=== PATIENT | male | born 1945 | race Caucasian/White ===

== ENCOUNTER 2019-08-10 15:58 | Emergency (ER) | payer MEDICARE, OTHER ==
[~2019-08-10] VITALS: Ht 177.8 cm; Wt 94.2 kg
[2019-08-10 16:10] VITALS: BP 185/99
--- NOTE | 2019-08-10 16:21 | PHYS DOC ---
Past History Past Medical History: Diabetes, Heart Disease, Hypertension Smoking: Non-smoker General Adult EDM: Chief Complaint: HEAD INJURY/TRAUMA HPI: HPI: Patient is a 74-year-old male who presents to the emergency department for evaluation. He was working on his boat on Sunday evening, when his left hand which was supporting his body weight slipped, and he lurched forward and struck an open pradhan with his head. He sustained a linear abrasion/skin tear on his scalp. He states that oozed overnight Sunday night and Sunday night, despite his using antibiotic ointment and bandages at home so he presented to the emergency department for evaluation. He denies any signs or symptoms of a serious head injury, he has not had any nausea, vomiting, vision changes, or trouble concentrating. He is uncertain of his last tetanus. There are no alleviating or exacerbating factors to his symptoms. Review of Systems: Review of Systems: Constitutional: Denies fever or chills Eyes: Denies change in visual acuity HENT: Denies nasal congestion or sore throat Respiratory: Denies cough or shortness of breath Cardiovascular: Denies chest pain or edema GI: Denies abdominal pain, nausea, vomiting, bloody stools or diarrhea : Denies dysuria Integument: Denies rash Neurologic: Denies headache, focal weakness or sensory changes Endocrine: Denies polyuria or polydipsia Heart Score: Risk Factors: Risk Factors: DM, Current or recent (<one month) smoker, HTN, HLP, family hist ory of CAD, obesity. Risk Scores: Score 0 - 3: 2.5% MACE over next 6 weeks - Discharge Home Score 4 - 6: 20.3% MACE over next 6 weeks - Admit for Clinical Observation Score 7 - 10: 72.7% MACE over next 6 weeks - Early Invasive Strategies Physical Exam: PE: PHYSICAL EXAM: CONSTITUTIONAL: Well developed, well nourished HEAD: normocephalic, there is a linear abrasion/skin tear on the superior scalp, just to the right of midline, the remainder the cranium is atraumatic EENT: PERRL, EOMI. Conjunctivae normal color, sclerae non-icteric; moist mucous membranes. NECK: Supple, non-tender; no meningismus. LUNGS: Lungs CTA, breathing even and unlabored. Normal air movement. HEART: Regular rate and rhythm, no murmur CHEST: No deformity; non-tender ABDOMEN: The abdomen is soft, and non-tender, no masses or bruits. EXTREM: Normal ROM; no deformity, no calf tenderness. Normal pulses palpable in all extremities. There is no pedal edema. SKIN: No rash; no diaphoresis NEURO: Alert; normal speech and cognition; CN's grossly intact; strength grossly intact without focal deficit. EKG: EKG: [] Radiology/Procedures: Radiology/Procedures: [] Course & Med Decision Making: Course & Med Decision Making Discussed wound care with patient, need for PCP follow-up and return precautions. Dragon Disclaimer: Dragon Disclaimer: This electronic medical record was generated, in whole or in part, using a voice recognition dictation system. Departure Departure: Impression: Primary Impression: Scalp abrasion Disposition: 01 HOME/RESIDENCE PRIOR TO ADM Condition: STABLE Referrals: TERESA LEYVA MD (PCP) Patient Instructions: Abrasions, Skin Tear Care Justification of Admission: Justification of Admission: Justification of Admission Dx: N/A KAIDEN EDWARDS MD Aug 10, 2019 16:21
[2019-08-10] MEDS ORDERED: BACITRACIN ZINC TOPICAL OINT PACKET. TP ONE (16:45)
[2019-08-10] MEDS ORDERED: DIPH,PERTUSS(ACELL),TET VAC/PF 0.5 ML SYRINGE. VAX IM ONE (16:45)
== END 2019-08-10 16:40 | disposition home or self-care (01) ==
LOC: ER 15:58
DX: S00.01XA Abrasion of scalp, initial encounter (principal); E11.9 Type 2 diabetes mellitus without complications; I11.9 Hypertensive heart disease without heart failure; W01.198A Fall on same level from slipping, tripping and stumbling with subsequent striking against other object, initial encounter; Y93.89 Activity, other specified; Y92.89 Other specified places as the place of occurrence of the external cause; Y99.8 Other external cause status
CPT/HCPCS: 90471; 90715; 99283

== ENCOUNTER 2020-03-17 07:21 | Emergency (ER) | payer MEDICARE, OTHER ==
[~2020-03-17] VITALS: Ht 177.8 cm; Wt 94.2 kg
[2020-03-17] MEDS ORDERED: ROCURONIUM 50 MG/5 ML VIAL. ONE (07:30)
[2020-03-17] MEDS ORDERED: PROPOFOL 100 ML IV ONE (07:31)
--- NOTE | 2020-03-17 07:39 | PHYS DOC ---
Past History Past Medical History: Diabetes, Heart Disease, Hypertension Additional Past Medical Histor: GOUT Past Surgical History: Cervical Fusion, Other Additional Past Surgical Histo: CARDIAC ABLATION Smoking: Non-smoker Alcohol Use: Rarely General Adult HPI: HPI: History obtained from EMS and . Patient is a 75-year-old male with past medical recent report anemia, hypertension, hyperlipidemia, gout, A. fib, diabetes who presents with chief complaint of shortness of breath. EMS were called to the house for progressive shortness of breath over the night. states she has had a cough and subjective fevers over the past 24 hours. She notes that he has been complaining of a cough and sore throat over that time period as well. EMS states on arrival patient was satting in the low 60s on room air. He does use a CPAP device at night. They placed him on CPAP and did improve his oxygenation to the mid 80s. They state in route he did become unresponsive. They did place a nasal trumpet and began bagging him. Upon arrival patient is unresponsive. No further history can be obtained. Review of Systems: Review of Systems: Review of symptoms unobtainable secondary to patient's altered mental status. Current Medications: Current Meds: Current Medications Medications (Trade) Dose Ordered Sig/Narendra Start Time Stop Time Status Last Admin Dose Admin Fentanyl Citrate (Fentanyl 2ml Vial) 100 mcg STK-MED ONCE 03/17/20 07:31 03/17/20 07:32 DC Propofol 100 ml @ As Directed STK-MED ONCE 03/17/20 07:31 03/17/20 07:32 DC Allergies: Allergies: Allergies Coded Allergies Type Severity Reaction Last Updated Verified No Known Drug Allergies 08/10/19 No Physical Exam: PE: Constitutional: Unresponsive HENT: Normocephalic, atraumatic, bilateral external ears normal, oropharynx moist, no oral exudates, nasal trumpet in place. [] Eyes: PERRLA, EOMI, conjunctiva normal, no discharge. [] Neck: supple, no stridor. [] Cardiovascular: Tachycardic, regular, no murmurs noted. Lungs & Thorax: Rhonchorous breath sounds noted bilaterally. Nasal trumpet in place. Arrives with bagging in process. Abdomen: no masses, no pulsatile masses. [] Skin: Warm, dry, no erythema, no rash. [] Extremities: No tenderness, no cyanosis, no clubbing, ROM intact, no edema. [] Neurologic: GCS [address] Current Patient Data: Labs: Laboratory Tests Test 03/17/20 07:25 03/17/20 08:00 03/17/20 08:15 White Blood Count 14.5 x10^3/uL Red Blood Count 4.43 x10^6/uL Hemoglobin 13.0 g/dL Hematocrit 40.7 % Mean Corpuscular Volume 92 fL Mean Corpuscular Hemoglobin 29 pg Mean Corpuscular Hemoglobin Concent 32 g/dL Red Cell Distribution Width 15.7 % Platelet Count 180 x10^3/uL Neutrophils (%) (Auto) 74 % Lymphocytes (%) (Auto) 17 % Monocytes (%) (Auto) 9 % Eosinophils (%) (Auto) 1 % Basophils (%) (Auto) 0 % Neutrophils # (Auto) 10.7 x10^3uL Lymphocytes # (Auto) 2.4 x10^3/uL Monocytes # (Auto) 1.2 x10^3/uL Eosinophils # (Auto) 0.1 x10^3/uL Basophils # (Auto) 0.0 x10^3/uL Lactic Acid Level 1.6 mmol/L Troponin I Quantitative 0.024 ng/mL Blood Gas pH 7.20 Blood Gas PCO2 75 mmHg Blood Gas PO2 81 mmHg Blood Gas HCO3 29 mmol/L Arterial Bld O2 Saturation (Calc) 91 % FiO2 100 % Sodium Level 140 mmol/L Potassium Level 4.9 mmol/L Chloride Level 104 mmol/L Carbon Dioxide Level 28 mmol/L Anion Gap 8 Blood Urea Nitrogen 25 mg/dL Creatinine 1.1 mg/dL Estimated GFR (Cockcroft-Gault) 65.6 BUN/Creatinine Ratio 23 Glucose Level 204 mg/dL Calcium Level 8.2 mg/dL Magnesium Level 1.7 mg/dL Total Bilirubin 0.8 mg/dL Aspartate Amino Transf (AST/SGOT) 21 U/L Alanine Aminotransferase (ALT/SGPT) 33 U/L Alkaline Phosphatase 76 U/L YK-Mth-H-Type Natriuretic Peptide 1571 pg/mL Total Protein 7.3 g/dL Albumin 3.7 g/dL Albumin/Globulin Ratio 1.0 Lipase 81 U/L Current Medications Medications (Trade) Dose Ordered Sig/Narendra Route PRN Reason Start Time Stop Time Status Last Admin Dose Admin Fentanyl Citrate (Fentanyl 2ml Vial) 100 mcg STK-MED ONCE .ROUTE 03/17/20 07:31 03/17/20 07:32 DC Propofol 100 ml @ As Directed STK-MED ONCE IV 03/17/20 07:31 03/17/20 07:32 DC Piperacillin Sod/ Tazobactam Sod 3.375 gm/Sodium Chloride 50 ml @ 100 mls/hr 1X ONCE IV 03/17/20 07:45 03/17/20 08:14 DC Vancomycin HCl 2.5 gm/Sodium Chloride 500 ml @ 250 mls/hr 1X ONCE IV 03/17/20 07:45 03/17/20 07:45 DC Fentanyl Citrate (Fentanyl 2ml Vial) 50 mcg PRN Q5MIN PRN IV PAIN 03/17/20 07:45 Fentanyl Citrate 30 ml @ 2.5 mls/hr CONT PRN IV PAIN 03/17/20 07:45 Propofol 100 ml @ 0 mls/hr CONT PRN IV PER PROTOCOL 03/17/20 07:45 Rocuronium [place] (Zemuron) 100 mg 1X ONCE IV 03/17/20 07:45 03/17/20 07:46 DC Etomidate (Amidate) 20 mg 1X ONCE INJ 03/17/20 07:45 03/17/20 07:46 DC Albuterol Sulfate (Ventolin) 2.5 mg STK-MED ONCE .ROUTE 03/17/20 07:43 03/17/20 07:43 DC Vancomycin HCl 2 gm/Sodium Chloride 500 ml @ 250 mls/hr 1X ONCE IV 03/17/20 07:45 03/17/20 09:44 Iohexol (Omnipaque 350 Mg/ml) 100 ml 1X ONCE IV 03/17/20 08:00 03/17/20 08:01 DC 03/17/20 08:00 Albuterol/ Ipratropium (Duoneb) 9 ml 1X ONCE NEB 03/17/20 07:45 03/17/20 08:00 DC Dexamethasone Sodium Phosphate (Decadron) 10 mg 1X ONCE IV 03/17/20 07:45 03/17/20 08:00 DC Sodium Chloride 1,000 ml @ 1,000 mls/hr 1X ONCE IV 03/17/20 08:15 03/17/20 09:14 DC Sodium Chloride 50 ml @ As Directed STK-MED ONCE .ROUTE 03/17/20 08:59 03/17/20 08:59 DC Piperacillin Sod/ Tazobactam Sod (Zosyn) 3.375 gm STK-MED ONCE IV 03/17/20 08:59 03/17/20 08:59 DC Magnesium Sulfate 50 ml @ 25 mls/hr 1X ONCE IV 03/17/20 09:15 03/17/20 11:14 Vital Signs: Vital Signs Date Time Temp Pulse Resp B/P (MAP) Pulse Ox O2 Delivery O2 Flow Rate FiO2 03/17/20 07:45 90 AVAPS V60 03/17/20 07:25 104 20 147/100 (116) 87 Bag Valve Mask 10.0 EKG: EKG: [] EKG consistent with sinus tachycardia. Ventricular rate of 104 bpm. [place] normal. Intervals normal. No acute ischemic changes noted. Radiology/Procedures: Radiology/Procedures: [address] [address] IMAGING REPORT Signed PATIENT: DEISI JOHNSON LACCOUNT: [id number] : 12/13/1953 LOCATION: ER AGE: 66 SEX: M EXAM STATUS: REG ER ORD. PHYSICIAN: MIGUEL GARSIA DO REASON: fall PROCEDURE: CT HEAD AND CERVICAL SPINE WO CT brain without contrast, CT C-spine without contrast. HISTORY: Fall CT brain CT scan of brain was done without contrast. Comparison is made with a study from December 16. There is diffuse atrophy. There is no intracranial hemorrhage or subdural hematoma. There is no mass effect or shift of the midline. Ventricles are within normal limits in size for the degree of atrophy. An acute CVA is not identified. Sinuses are clear. A skull fracture is not identified. IMPRESSION: 1. Atrophy. 2. No intracranial hemorrhage or acute finding. End impression CT cervical spine Axial CT images were obtained through the cervical spine. Sagittal and coronal reconstructed images were reviewed. There is degenerative change in the cervical spine. There are emphysematous changes in the upper lobes of the lungs. There is mild to moderate carotid artery calcification at the carotid bifurcations on each side. There is degenerative disc disease at all levels in the cervical spine except for C2-3. There is foraminal stenosis from uncovertebral spurring and facet arthritis at several levels bilaterally. An acute C-spine fracture is not identified. IMPRESSION: 1. Extensive degenerative changes in the cervical spine. 2. No acute C-spine fracture. PQRS Compliance Statement: One or more of the following individualized dose reduction techniques were utilized for this examination: 1. Automated exposure control 2. Adjustment of the mA and/or kV according to patient size 3. Use of iterative reconstruction technique Electronically signed by: Sarath Mcdonald MD (03/17/2020 10:02 AM) [id number] DICTATED AND SIGNED BY: SARATH MCDONALD MD DATE: 03/17/20956 CC: RADHA BLUNT DO; MIGUEL GARSIA DO ~MTH0 [address] [place] [address] IMAGING REPORT Signed PATIENT: SHAN STORM LACCOUNT: [id number] : 1945 LOCATION: ER AGE: 75 SEX: M EXAM STATUS: REG ER ORD. PHYSICIAN: MIGUEL GARSIA DO REASON: AMS PROCEDURE: CT HEAD WO CONTRAST CT brain without contrast. HISTORY: Altered mental status, intubated CT scan of the brain was done without contrast. Sinuses are clear. There is no intracranial hemorrhage or subdural hematoma. There is no mass effect or shift of the midline. Ventricles are normal in size. An acute CVA is not identified. IMPRESSION: 1. No intracranial hemorrhage or acute finding noted. PQRS Compliance Statement: One or more of the following individualized dose reduction techniques were utilized for this examination: 1. Automated exposure control 2. Adjustment of the mA and/or kV according to patient size 3. Use of iterative reconstruction technique Electronically signed by: Sarath Mcdonald MD (03/17/2020 9:33 AM) [id number] DICTATED AND SIGNED BY: SARATH MCDONALD MD DATE: 03/17/20930 CC: TERESA LEYVA MD; MIGUEL GARSIA DO ~MTH0 0 Endotracheal Intubation Procedure Note [place] Protocol: 1. Pre-procedure verification: - Correct patient, correct site, correct procedure (correct patient verified against two identifiers: name and date of ) - H&P or H&P update complete and in medical record - Review of: Radiology images, scans, labs, pathology, biopsy reports with appropriate identifiers (if applicable) - Any required blood products, implants, devices, and/or special equipment for the procedure (if applicable) 2. Site Markings - when appropriate: N/A 3. Time Out: Time out performed (Includes validating the following: Correct patient, correct side/site marked and procedure to performed, correct position) Procedure Details: Procedure: Endotracheal intubation Indication: Acute Respiratory Failure secondary to hypoxia and altered mental status Consent: Obtained verbally from Procedure: The patient was placed in the supine position and pre-oxygenated with 100% oxygen via BVM. Sedation was given with etomidate. Using a glide scope for blade, the cords were visualized; an 7.5 cuffed tube was able to be passed through the cords with direct visualization. Condensation was seen in the tube; bilateral breath-sounds were present, with none auscultated over the abdomen; good color change was present on EtCO2 detector. A CXR is ordered to cofirm placement. The ETT was secured at 22 cm at the lips. Mechanical ventilation is initiated at A/C, Vt 450ml, 100% FiO2, rate 16, PEEP 5. The patient tolerated procedure without immediate complication. Miguel Garsia, [] Impressions: The patient had a high probability of sudden, clinically significant deterioration, which required the highest level of physician preparedness to intervene urgently. I managed life or organ supporting interventions that required frequent re-assessment throughout their stay in the emergency department. The total critical care time spent managing their case, separate from other billable procedures, was 42 minutes. Heart Score: Risk Factors: Risk Factors: DM, Current or recent (<one month) smoker, HTN, HLP, family history of CAD, obesity. Risk Scores: Score 0 - 3: 2.5% MACE over next 6 weeks - Discharge Home Score 4 - 6: 20.3% MACE over next 6 weeks - Admit for Clinical Observation Score 7 - 10: 72.7% MACE over next 6 weeks - Early Invasive Strategies Course & Med Decision Making: Course & Med Decision Making Pertinent Labs and Imaging studies reviewed. (See chart for details) [] Patient is a 75 old male who arrives from home with chief complaint of shortness of breath. Upon arrival EMS states that his oxygenation was low 60s on room air. He was placed on CPAP device. In route patient became more unresponsive. Upon arrival patient was being bagged with an approximate oxygenation of 88%. He was unresponsive with a GCS of 3. Emergent intubation performed immediately. See procedure note for further details. Patient's initial oxygenation was approximate 90% on 100% FiO2. His PEEP was escalated to 12. His oxygenation did improve to proximally 94%. Imaging reveals concern for multifocal pneumonia. Unclear if this is bacterial or Covid related. Vancomycin and Zosyn were administered. Blood and urine cultures pending. IV fluids were administered. Lactate 1.6. Mild leukocytosis of 15,000. Mild elevation of troponin of 0.024. Likely type II NSTEMI in the setting of sepsis. Heparinization be deferred as I have low suspicion for ACS. EKG essentially sinus tachycardia with out acute ischemic changes. Patient was comfortably sedated on the ventilator. was updated on plan of care. Per the 's request patient will be transferred to [facility]. Did discuss the case with Dr. Christianson at [facility]. Patient be transferred to [facility] for further care. Has remained hemodynamically stable in our emergency department. Dragon Disclaimer: DragKonoz Disclaimer: This electronic medical record was generated, in whole or in part, using a voice recognition dictation system. Departure Departure: Impression: Primary Impression: Respiratory failure with hypoxia and hypercapnia Qualified Codes: J96.01 - Acute respiratory failure with hypoxia; J96.02 - Acute respiratory failure with hypercapnia Additional Impressions: Sepsis Qualified Codes: A41.9 - Sepsis, unspecified organism Multifocal pneumonia Hyperglycemia NSTEMI (non-ST elevated myocardial infarction) Disposition: 02 DC/TRF OTHER SHORT TERM HOS Condition: STABLE Referrals: TERESA LEYVA MD (PCP) Attending Signature Attending Signature I was personally available for consult in the emergency department. I have reviewed the chart and agree with the documentation as recorded by the DEREK including the assessment, treatment plan and disposition. MIGUEL GARSIA DO Mar 17, 2020 07:39
[2020-03-17] MEDS ORDERED: ALBUTEROL SULFATE 2.5 MG/3 ML NEBU. ONE (07:43)
[2020-03-17] MEDS ORDERED: ETOMIDATE 40 MG/20 ML VIAL. INJ ONE (07:45)
[2020-03-17] MEDS ORDERED: DEXAMETHASONE SOD PHOS 10 MG/ML VIAL. IV ONE (07:45)
[2020-03-17] MEDS ORDERED: IPRATRPIUM/ALBUTEROL 0.5/2.5MG 3 ML NEBU. NEB ONE (07:45)
[2020-03-17] MEDS ORDERED: ROCURONIUM 50 MG/5 ML VIAL. IV ONE (07:45)
[2020-03-17] MEDS ORDERED: VANCOMYCIN 2.5 GM in IV NORMAL SALINE 500ML 500 ML IV ONE (07:45)
[2020-03-17] MEDS ORDERED: PROPOFOL 100 ML IV PRN (07:45)
[2020-03-17] MEDS ORDERED: PIPERACILLIN/TAZOBACTAM 3.375 GM in IV NORMAL SALINE 50ML 50 ML IV ONE (07:45)
[2020-03-17] MEDS ORDERED: VANCOMYCIN 2 GM in IV NORMAL SALINE 500ML 500 ML IV ONE (07:45)
--- NOTE | 2020-03-17 07:58 | RAD ---
AP chest. HISTORY: Respiratory failure, intubated AP view of the chest shows the endotracheal tube in good position just above the aortic arch. Heart i s normal in size. There is mild gastric distention. There are hazy diffuse bilateral infiltrates sugg esting pneumonia. There is no effusion. IMPRESSION: 1. Endotracheal tube in good position. 2. Bilateral diffuse infiltrates. PQRS Compliance Statement: One or more of the following individualized dose reduction techniques were utilized for this examinat ion: 1. Automated exposure control 2. Adjustment of the mA and/or kV according to patient size 3. Use of iterative reconstruction technique Electronically signed by: Sarath Mcdonald MD (03/17/2020 7:55 AM) [id number]
[2020-03-17 07:59] LABS: BASO % 0 % (0-3); EOS # 0.1 x10^3/uL (0.0-0.7); EOS % 1 % (0-3); HEMATOCRIT 40.7 % (39.0-53.0); LYMPH # 2.4 x10^3/uL (1.0-4.8); LYMPH % 17 % (24-48); MEAN CORPUSCULAR HEMOGLOBIN 29 pg (25-35); MEAN CORPUSCULAR HGB CONC 32 g/dL (31-37); MEAN CORPUSCULAR VOLUME 92 fL (79-100); MONO # 1.2 x10^3/uL (0.0-1.1); MONO % 9 % (0-9); NEUT # 10.7 x10^3uL (1.8-7.7); NEUT % 74 % (31-73); PLATELET COUNT 180 x10^3/uL (140-400); RED BLOOD COUNT 4.43 x10^6/uL (4.30-5.70); RED CELL DISTRIBUTION WIDTH 15.7 % (11.5-14.5); WHITE BLOOD COUNT 14.5 x10^3/uL (4.0-11.0)
[2020-03-17] MEDS ORDERED: IOHEXOL 350 MG/ML 100 ML VIAL. IV ONE (08:00)
[2020-03-17] MEDS ORDERED: IV NORMAL SALINE 1,000ML 1,000 ML IV ONE (08:15)
--- NOTE | 2020-03-17 08:15 | RAD ---
EXAM: 1. CHEST ONE VIEW. 2. ABDOMEN ONE VIEW. HISTORY: Intubated, respiratory failure, line placement. COMPARISON: None. FINDINGS: An endotracheal tube has its tip 6.5 cm above the smitha. A nasogastric tube has its tip in the stomach. Bilateral airspace infiltrates are consistent with moderate multifocal ammonia. There is no pneumotho rax or clear pleural effusion. The heart is moderately enlarged. There are atherosclerotic calcificat ions of the aorta. There is moderate gaseous distention of the stomach. There is at least mild small bowel distention in the upper abdomen. IMPRESSION: 1. Moderate multifocal pneumonia. 2. Gaseous distention of the stomach and small bowel in the upper abdomen. Electronically signed by: Miguelina Perry MD (03/17/2020 8:13 AM) [id number]
[2020-03-17 08:16] LABS: BGAS PH 7.2 (7.35-7.46)
[2020-03-17 08:41] LABS: CALCIUM 8.2 mg/dL (8.5-10.1); CREATININE 1.1 mg/dL (0.7-1.3); GFR 65.6; POTASSIUM 4.9 mmol/L (3.5-5.1)
[2020-03-17 08:54] LABS: ALBUMIN 3.7 g/dL (3.4-5.0); MAGNESIUM 1.7 mg/dL (1.8-2.4); TOTAL BILIRUBIN 0.8 mg/dL (0.2-1.0); TOTAL PROTEIN 7.3 g/dL (6.4-8.2)
[2020-03-17] MEDS ORDERED: IV NORMAL SALINE 50ML 50 ML ONE (08:59)
[2020-03-17] MEDS ORDERED: PIPERACILLIN/TAZOBACTAM 3.375 GM VIAL IV ONE (08:59)
[2020-03-17] MEDS ORDERED: MAGNESIUM SULFATE 2GM 50 ML IV ONE (09:15)
--- NOTE | 2020-03-17 09:35 | RAD ---
CT brain without contrast. HISTORY: Altered mental status, intubated CT scan of the brain was done without contrast. Sinuses are clear. There is no intracranial hemorrhag e or subdural hematoma. There is no mass effect or shift of the midline. Ventricles are normal in siz e. An acute CVA is not identified. IMPRESSION: 1. No intracranial hemorrhage or acute finding noted. PQRS Compliance Statement: One or more of the following individualized dose reduction techniques were utilized for this examinat ion: 1. Automated exposure control 2. Adjustment of the mA and/or kV according to patient size 3. Use of iterative reconstruction technique Electronically signed by: Sarath Mcdonald MD (03/17/2020 9:33 AM) [id number]
--- NOTE | 2020-03-17 10:03 | RAD ---
Study: CT CHEST WITH CONTRAST - PULMONARY ANGIOGRAM History: Altered mental status Comparison: Chest radiograph 03/17/2020 Technique: Helical CT of the chest performed after the administration of intravenous contrast and ti med for angiographic evaluation of the pulmonary arteries per PE protocol. Coronal and sagittal 3D MN P reformations were obtained. One or more of the following individualized dose reduction techniques were utilized for this examinat ion: 1. Automated exposure control 2. Adjustment of the mA and/or kV according to patient size 3. Use of iterative reconstruction technique. Findings: Pulmonary Arteries: Contrast bolus is adequate. There is no acute pulmonary embolism. Heart/Systemic Vasculature: The heart is normal in size. Trace pericardial effusion. There are lawler ry artery calcifications. Thoracic aorta is normal in caliber. Mediastinum: There are small mediastinal and hilar lymph nodes, likely reactive. Lungs: There are extensive bilateral consolidations in both upper and lower lobes, greatest in the lo wer lobes. There are patchy, less confluent opacities in the right middle lobe. An endotracheal tube terminates above the smitha. The airways are clear. Trace pleural effusion. Neck/Axilla/Body Wall: Thyroid gland is normal. No axillary lymphadenopathy. Upper Abdomen: A nasogastric tube terminates in the gastric fundus. Upper abdomen is otherwise unrema rkable. Bones: There is no acute osseous abnormality. There is lower cervical fusion hardware. IMPRESSION: 1. No acute pulmonary embolism. 2. Extensive bilateral consolidations suspicious for multifocal pneumonia. Pulmonary edema or ARDS c ould have a similar appearance. Electronically signed by: Elva Foley MD (03/17/2020 10:01 AM) [id number]
[2020-03-17 10:04] LABS: BGAS PH 7.29 (7.35-7.46)
[2020-03-17 14:50] LABS: BGAS PH 7.39 (7.35-7.46)
[2020-03-17 15:05] VITALS: BP 144/81
--- NOTE | 2020-03-17 16:15 | EKG ---
[address] [address] Test Date: 2020-03-17 Test Time: 07:33:19 Pat Name: SHAN STORM Department: Room: Gender: M [employer] Control Clerk: : 1945 Requested By: ALVARADO DICKENS Order Number: [id number] Reading MD: Measurements Intervals [place] Rate: 104 P: 64 AR: 142 QRS: 48 QRSD: 90 T: 29 QT: 332 QTc: 443 Interpretive Statements SINUS TACHYCARDIA NO SPECIFIC ECG ABNORMALITIES RI6.02 No previous ECG available for comparison
== END 2020-03-17 15:15 | disposition short-term general hospital (02) ==
LOC: ER 07:21
DX: J96.01 Acute respiratory failure with hypoxia (principal); J96.02 Acute respiratory failure with hypercapnia; A41.9 Sepsis, unspecified organism; J18.9 Pneumonia, unspecified organism; I21.4 Non-ST elevation (NSTEMI) myocardial infarction; E11.65 Type 2 diabetes mellitus with hyperglycemia; I11.9 Hypertensive heart disease without heart failure; Z20.822 Contact with and (suspected) exposure to COVID-19
CPT/HCPCS: 31500; 36415; 51702; 70450; 71045; 71275; 74018; 80053; 82803; 83605; 83690; 83735; 83880; 84484; 85025; 87040; 93005; 94640; 96365; 96366; 96368; 96375; 99291; C9803; J1100; J2543; J3010; J3370; J3475; J7030; J7040; Q9967; U0003; 94002

== ENCOUNTER 2020-09-07 22:53 | Emergency (ER) | payer MEDICARE, OTHER ==
[~2020-09-07] VITALS: Ht 175.3 cm; Wt 91.0 kg
[2020-09-07 23:34] VITALS: BP 163/80
--- NOTE | 2020-09-08 00:34 | PHYS DOC ---
Past History Past Medical History: A-Fib, Anemia, Diabetes, High Cholesterol, Heart Disease, Hypertension Additional Past Medical Histor: GOUT, BPH, neuropathy Past Surgical History: Cervical Fusion, Other Additional Past Surgical Histo: CARDIAC ABLATION Smoking: Non-smoker Alcohol Use: Occasionally Additional Alcohol Information: 1 glass of wine per day General Adult EDM: Chief Complaint: Bilateral leg pain, swelling after falling HPI: HPI: 75-year-old male with history of A. fib, diabetes, hypertension but no known history of CHF or DVT, he presents to the emergency department complaining of swelling in both of his legs, he says he noticed this within the last 12 hours, happened gradually over the course of the day. He [place] and hit both of his legs the day before yesterday, complains of some abrasions and some pain in the knees bilaterally, he denies any chest pain or shortness of breath, no fever, chills, no focal numbness weakness/tingling Review of Systems: Review of Systems: General: no fevers , no chills, no general weakness Eyes: no blurred vision, no diplopia Skin: no rashes Neck: no swelling, no neck stiffness, no neck pain Heme: no bleeding, no lymph node enlargement Ear/Nose/Throat: No sore throat, no runny nose, no hearing loss, no difficulty swallowing Cardiovascular: no Chest pain, no palpitations Respiratory: No dyspnea, no cough, no hemoptysis Gastrointestinal: No abdominal pain, no nausea, no vomiting, no diarrhea, no blood in stool Genitourinary: no dysuria, no hematuria Musculoskeletal: no positive for bilateral leg pain, abrasions, swelling Neurologic: no headaches, no dizziness, no focal numbness/tingling, no focal weakness Psych: no depression, no anxiety, no SI/HI *All review of systems are negative other than what is noted above Allergies: Allergies: Allergies Coded Allergies Type Severity Reaction Last Updated Verified No Known Drug Allergies 09/07/20 No Physical Exam: PE: Gen-well appearing, no acute distress Head: Normocephalic/Atraumatic ENT: atraumatic, PERRLA, EOMI, oropharynx clear Neck: supple, full ROM/strength, no JVD, no nuchal rigidity Lungs: no distress, speaks in full sentences, Clear to auscultation bilaterally CV: reg rate, rhythm, no murmus/rubs/gallops, peripheral pulses equal in all extremities Abdomen: soft/nontender, no guarding/rebound tenderness, no rigidity, non distended, normoactive bowel sounds Musculoskeletal: full ROM/strength in all extremities, there are multiple abrasions and contusions the lateral malleoli of both knees, lower legs, trace edema bilaterally, not asymmetric, DP/PT pulses are 2+ in bilateral lower extremities Back: full range of motion/strength Skin: intact, no rashes Lymph: no gross CHANDRAKANT multiple abrasions as noted above, however no full-thickness lacerations Neuro: alert and oriented x 4, CN 2-12 grossly intact, Motor strength is 5/5 in all extremities, no focal sensory deficits, no focal ataxia, ambulatory with steady gait Psych: normal mood/affect Current Patient Data: Vital Signs: Vital Signs Date Time Temp Pulse Resp B/P (MAP) Pulse Ox O2 Delivery O2 Flow Rate FiO2 09/07/20 23:34 98.6 55 18 163/80 98 Room Air EKG: EKG: [] Twelve-lead EKG was performed at 11:47 PM: Normal sinus rhythm, rate is 60, the computer is reading "[employer]", I disagree, there is a sinus variation pattern that I believe is normal, there is a single lead III with flat T waves but I do not believe this is an ischemic appearing EKG, no old for comparison un fortunately Radiology/Procedures: Radiology/Procedures: [] Heart Score: C/O Chest Pain: No Risk Factors: Risk Factors: DM, Current or recent (<one month) smoker, HTN, HLP, family history of CAD, obesity. Risk Scores: Score 0 - 3: 2.5% MACE over next 6 weeks - Discharge Home Score 4 - 6: 20.3% MACE over next 6 weeks - Admit for Clinical Observation Score 7 - 10: 72.7% MACE over next 6 weeks - Early Invasive Strategies Course & Med Decision Making: Course & Med Decision Making Pertinent Labs and Imaging studies reviewed. (See chart for details) [] 75-year-old male presents to the emergency department after mechanical fall roughly 24 to 36 hours ago now complaining of swelling in bilateral lower extremities as well as pain, I believe that this swelling is likely as a result of some soft tissue contusion especially since he is on a blood thinner, Eliquis, no known history of cardiac disease or CHF, I do not see any clinical signs of acute CHF, unlikely DVT, Wells score is -2 and there is an alternative diagnosis much more likely, the swelling is bilateral, no signs of any infection, he has normal neurovascular, tendon and ligamentous function throughout both lower extremities complains of check labs, x-ray, will reevaluate and examined him in the midst of his work-up to determine the best course of action at that point Update at 1:25 AM: Feeling better, the work-up is negative, slight elevated proBNP level, will refer him to primary care and cardiology for close outpatient follow-up Patient was seen in the ED for leg swelling after traumatic injury, there is no apparent evidence of any emergency medical pathology at this time, patient was advised follow-up with their primary care provider /physician in the next 24-48 hours and to return to the ED before then if any new or worsening / concerning symptoms had developed. All questions and concerns were addressed at time of disposition' We will give the patient a 3-day course of Lasix for symptom improvement Candaceon Disclaimer: Patricia Disclaimer: This electronic medical record was generated, in whole or in part, using a voice recognition dictation system. Departure Departure: Impression: Primary Impression: Multiple leg contusions Qualified Codes: S80.10XA - Contusion of unspecified lower leg, initial encounter Additional Impression: Leg swelling Disposition: HOME / SELF CARE / HOMELESS Condition: IMPROVED Referrals: TERESA LEYVA MD (PCP) 48 hours Patient Instructions: Edema Additional Instructions: I am going to give you some medicine to help with the swelling, I believe that is from the fall, the test here okay but I do want you to follow with your primary care doctor in the next 24 to 48 hours, return to the nearest emergency room before follow-up if any new or worsening/concerning symptoms develop Scripts Furosemide (LASIX) 20 Mg Tablet 1 TAB PO DAILY for lasix for 3 Days, #3 TAB 0 Refills Prov: CALLUM BELTRAN MD 09/08/20 CALLUM BELTRAN MD Sep 08, 2020 00:34
--- NOTE | 2020-09-08 00:45 | RAD ---
XR CHEST 1V History: Reason: BLE swelling HX: AFIB HTN / Spl. Instructions: / History: Comparison: March 17, 2020 Findings: No consolidation or pleural effusion. Normal heart size. No pneumothorax.. Changes cervical spine. Le ft costophrenic angle not included in the image. Impression: 1. No acute cardiopulmonary process. Electronically signed by: Wilder Betancourt DO (09/08/2020 12:43 AM) [facility]
[2020-09-08 00:50] LABS: BASO % 1 % (0-3); EOS # 0.2 x10^3/uL (0.0-0.7); EOS % 3 % (0-3); HEMATOCRIT 35.8 % (39.0-53.0); HEMOGLOBIN 11.9 g/dL (13.0-17.5); LYMPH # 1.4 x10^3/uL (1.0-4.8); LYMPH % 20 % (24-48); MEAN CORPUSCULAR HEMOGLOBIN 31 pg (25-35); MEAN CORPUSCULAR HGB CONC 33 g/dL (31-37); MEAN CORPUSCULAR VOLUME 93 fL (79-100); MONO # 0.7 x10^3/uL (0.0-1.1); MONO % 10 % (0-9); NEUT # 4.6 x10^3uL (1.8-7.7); NEUT % 67 % (31-73); PLATELET COUNT 143 x10^3/uL (140-400); RED BLOOD COUNT 3.87 x10^6/uL (4.30-5.70); RED CELL DISTRIBUTION WIDTH 15.7 % (11.5-14.5); WHITE BLOOD COUNT 6.8 x10^3/uL (4.0-11.0)
[2020-09-08 00:59] LABS: CALCIUM 8.9 mg/dL (8.5-10.1); CREATININE 1.2 mg/dL (0.7-1.3); GFR 59.3
[2020-09-08 01:11] LABS: ALBUMIN 3.9 g/dL (3.4-5.0); ALBUMIN/GLOBULIN RATIO 1.2 (1.0-1.7); TOTAL BILIRUBIN 0.5 mg/dL (0.2-1.0); TOTAL PROTEIN 7.1 g/dL (6.4-8.2)
--- NOTE | 2020-09-08 01:15 | EKG ---
[address] [address] Test Date: 2020-09-07 Test Time: 23:47:26 Pat Name: SHAN STORM Department: Room: Gender: M Miller Head Wet Process: ARLIN : 1945 Requested By: CALLUM BELTRAN Order Number: [id number] Reading MD: Measurements Intervals [place] Rate: 58 P: 65 [place]: 138 QRS: 38 QRSD: 98 T: 15 QT: 426 QTc: 422 Interpretive Statements SINUS RHYTHM ATRIAL PREMATURE COMPLEX(ES), BIGEMINY T ABNORMALITY IN INFERIOR LEADS ABNORMAL ECG RI6.02 No previous ECG available for comparison
[2020-09-08] MEDS ORDERED: FURO-69 PO (01:27)
== END 2020-09-08 01:56 | disposition home or self-care (01) ==
LOC: ER 22:53
DX: S80.02XA Contusion of left knee, initial encounter (principal); S80.01XA Contusion of right knee, initial encounter; S80.12XA Contusion of left lower leg, initial encounter; S80.11XA Contusion of right lower leg, initial encounter; I48.91 Unspecified atrial fibrillation; I10 Essential (primary) hypertension; E78.00 Pure hypercholesterolemia, unspecified; I11.9 Hypertensive heart disease without heart failure; E11.40 Type 2 diabetes mellitus with diabetic neuropathy, unspecified; Z86.2 Personal history of diseases of the blood and blood-forming organs and certain disorders involving the immune mechanism; W18.39XA Other fall on same level, initial encounter; Y93.89 Activity, other specified; Y92.89 Other specified places as the place of occurrence of the external cause; Y99.8 Other external cause status
CPT/HCPCS: 36415; 71045; 80053; 83880; 84484; 85025; 93005; 99285-25

== ENCOUNTER 2021-04-17 19:52 | Emergency (ER) | payer MEDICARE, OTHER ==
[~2021-04-17] VITALS: Ht 177.8 cm; Wt 98.9 kg
[~2021-04-17 19:52] MED LIST: FURO-69 PO
--- NOTE | 2021-04-17 19:55 | PHYS DOC ---
Past History Past Medical History: A-Fib, Anemia, Diabetes, High Cholesterol, Heart Disease, Hypertension Additional Past Medical Histor: GOUT, BPH, neuropathy Past Surgical History: Cervical Fusion, Other Additional Past Surgical Histo: CARDIAC ABLATION Smoking: Non-smoker Alcohol Use: Occasionally General Adult HPI: HPI: ",, My heart is racing... it the Afib.. I ve been taking my.. it started racing right after I took my Eliquis tonight..." Patient is a 76 year old male who presents with above hx and complaints of A. fib with ventricle tachycardia.. Patient has previous episodes of A. fib. Patient in the past has required hospitalization for his A. fib exacerbations. Patient's initial EKG shows a ventricle response of 145. It is a regular irregular rhythm. Overall morphology consistent with A. fib with rapid ventr icular response. Does have some strain pattern. Patient states he has been compliant with his maintenance meds. Normally follows with Dr. Leyva as primary. Follows Dr. Cates [facility] for cardiology.. Patient denies any excessive caffeine use. Patient's past medical history is A. fib, anemia, diabetes, elevated cholesterol, coronary artery disease, hypertension, gout, BPH, neuropathy peripheral, and arthritis. Patient has had a history of cardiac ablation. And cervical fusion. Patient is non-smoker. Does drink 1 glass of wine at dinner per day. Review of Systems: Review of Systems: Constitutional: Denies fever or chills Eyes: Denies change in visual acuity HENT: Denies nasal congestion or sore throat Respiratory: Denies cough or shortness of breath Cardiovascular: Denies chest pain or edema GI: Denies abdominal pain, nausea, vomiting, bloody stools or diarrhea : Denies dysuria Musculoskeletal: Denies back pain or joint pain Integument: Denies rash Neurologic: Denies headache, focal weakness or sensory changes Endocrine: Denies polyuria or polydipsia Lymphatic: Denies swollen glands Psychiatric: Denies depression or anxiety Family History: Family History: Family history noncontributory to presentation.. Current Medications: Current Meds: See nursing for home meds Allergies: Allergies: Allergies Coded Allergies Type Severity Reaction Last Updated Verified No Known Drug Allergies 09/07/20 No Physical Exam: PE: Constitutional: Mild distress, non-toxic appearance. [] HENT: Normocephalic, atraumatic, bilateral external ears normal, oropharynx moist, no oral exudates, nose normal. [] Eyes: PERRLA, EOMI, conjunctiva normal, no discharge. [] Neck: Normal range of motion, no tenderness, supple, no stridor. [] Old surgery scar Cardiovascular: Irregular rate and a regular rhythm and rapid ventricular response. Bedside monitor shows A. fib with ventricular rate running 1 45-1 60. Lungs & Thorax: Bilateral breath sounds clear to auscultation [] Abdomen: Bowel sounds normal, soft, no tenderness, no masses, no pulsatile masses. [] Skin: Warm, dry, no erythema, no rash. Poor turgor. Back: No tenderness, no CVA tenderness. [] Extremities: No tenderness, no cyanosis, no clubbing, ROM intact, no edema. Arthritic changes. Neurologic: Alert and oriented X 3, moves all extremities on request, does have distal sensory,, no focal deficits noted. [] Psychologic: Affect anxious, judgement normal, mood normal. [] EKG: EKG: My interpretation of EKG shows a A. fib rhythm at a ventricle rate of 145. Does have an ST strain pattern. Abnormal EKG. Time of EKG is 2002 hrs. [] My interpretation of EKG #2 shows a sinus rhythm at 82 bpm. Does have occasional PAC mature ventral comp plaques. But no findings of A. fib. Does have some slight ST-T strain pattern. Time of EKG is 2035 hrs. My interpretation of 30 EKG shows a sinus rhythm at 64 bpm. No acute morphology. Time of EKG is 2149 hrs. Radiology/Procedures: Radiology/Procedures: [][address] [address] IMAGING REPORT Signed PATIENT: SHAN STORM LACCOUNT: [id number] : 1945 LOCATION: ER AGE: 76 SEX: M EXAM STATUS: REG ER ORD. PHYSICIAN: SOREN ALVARADO MD REASON: tachy PROCEDURE: PORTABLE CHEST 1V EXAMINATION: XR CHEST 1V. HISTORY: 76 years Male tachycardia COMPARISON: September 08, 2020. Findings: The lungs are clear. The heart size is appears prominent. There is no effusion or pneumothorax. The mediastinum and lissette appear unremarkable. Cervical spine fusion hardware is seen. Impression: Prominent cardiac size. No focal infiltrate. Electronically signed by: Eusebia Ochoa MD (04/17/2021 9:50 PM) [id number] DICTATED AND SIGNED BY: EUSEBIA OCHOA MD DATE: 04/17/212148 CC: TERESA LEYVA MD; SOREN ALVARADO MD ~MTH0 0 Heart Score: C/O Chest Pain: No HEART Score for Chest Pain: HEART Score for Chest Pain Response (Comments) Value History Moderately Suspicious 1 ECG Nonspecific Repolarizatio 1 Age > 65 2 Risk Factors 1 or 2 Risk Factors 1 Troponin < Normal Limit 0 Total 5 Risk Factors: Risk Factors: DM, Current or recent (<one month) smoker, HTN, HLP, family history of CAD, obesity. Risk Scores: Score 0 - 3: 2.5% MACE over next 6 weeks - Discharge Home Score 4 - 6: 20.3% MACE over next 6 weeks - Admit for Clinical Observation Score 7 - 10: 72.7% MACE over next 6 weeks - Early Invasive Strategies Course & Med Decision Making: Course & Med Decision Making Pertinent Labs and Imaging studies reviewed. (See chart for details) In the process of gathering labs patient A. fib converted. Ventricle rate currently at 79 with occasional PAC Patient requesting discharge is want to stay in the ER any longer at 2130 hrs. Encourage patient allow us to repeat EKG and troponin. Pt. to avoid all caffeine. Call senior principal in the morning for follow-up. Return if any concerns. Take cardiac meds as directed. Impressiona: 1. A. fib with rapid ventricular response 2. Anemia hemoglobin 11.5 3. Elevated glucose 243 [] Dragon Disclaimer: Dragon Disclaimer: This electronic medical record was generated, in whole or in part, using a voice recognition dictation system. Departure Departure: Referrals: TERESA LEYVA MD (PCP) Patricia Disclaimer This chart was dictated in whole or in part using Voice Recognition software in a busy, high-work load, and often noisy Emergency Department environment. It may contain unintended and wholly unrecognized errors or omissions. SOREN ALVARADO MD Apr 17, 2021 19:55
[2021-04-17] MEDS ORDERED: ASPIRIN CHEWABLE 81 MG TABLET. PO ONE (20:00)
[2021-04-17] MEDS ORDERED: IV RINGERS SOLUTION,LACTATED 1,000 ML IV SCH (20:00)
[2021-04-17] MEDS ORDERED: dilTIAZem VIAL 125 MG in IV NORMAL SALINE 100ML 100 ML IV ONE (20:15)
[2021-04-17] MEDS ORDERED: dilTIAZem 25 MG/5 ML VIAL IVP ONE (20:15)
[2021-04-17] MEDS ORDERED: IV NORMAL SALINE 100ML 100 ML ONE (20:18)
[2021-04-17 20:49] LABS: BASO # 0.1 x10^3/uL (0.0-0.2); BASO % 2 % (0-3); EOS # 0.2 x10^3/uL (0.0-0.7); EOS % 4 % (0-3); HEMATOCRIT 34.7 % (39.0-53.0); HEMOGLOBIN 11.5 g/dL (13.0-17.5); LYMPH # 1.1 x10^3/uL (1.0-4.8); LYMPH % 21 % (24-48); MEAN CORPUSCULAR HEMOGLOBIN 31 pg (25-35); MEAN CORPUSCULAR HGB CONC 33 g/dL (31-37); MEAN CORPUSCULAR VOLUME 93 fL (79-100); MONO # 0.3 x10^3/uL (0.0-1.1); MONO % 7 % (0-9); NEUT # 3.5 x10^3uL (1.8-7.7); NEUT % 66 % (31-73); PLATELET COUNT 142 x10^3/uL (140-400); RED BLOOD COUNT 3.74 x10^6/uL (4.30-5.70); RED CELL DISTRIBUTION WIDTH 15.2 % (11.5-14.5); WHITE BLOOD COUNT 5.3 x10^3/uL (4.0-11.0)
[2021-04-17 20:57] LABS: CALCIUM 8.9 mg/dL (8.5-10.1); CREATININE 1.2 mg/dL (0.7-1.3); GFR 59.2; POTASSIUM 3.7 mmol/L (3.5-5.1)
[2021-04-17 21:13] LABS: ALBUMIN 4.1 g/dL (3.4-5.0); DIRECT BILIRUBIN 0.1 mg/dL (0.0-0.2); MAGNESIUM 2.1 mg/dL (1.8-2.4); TOTAL BILIRUBIN 0.5 mg/dL (0.2-1.0); TOTAL PROTEIN 6.8 g/dL (6.4-8.2)
--- NOTE | 2021-04-17 21:40 | EKG ---
[address] [address] Test Date: 2021-04-17 Test Time: 20:35:51 Pat Name: SHAN STORM Department: Room: Gender: M Director Client: : 1945 Requested By: SOREN ALVARADO Order Number: [id number] Reading MD: Measurements Intervals [place] Rate: 82 P: 66 [place]: 136 QRS: 32 QRSD: 100 T: -14 QT: 388 QTc: 456 Interpretive Statements SINUS RHYTHM VENTRICULAR PREMATURE COMPLEX(ES) QRS(T) CONTOUR ABNORMALITY CONSIDER ANTEROLATERAL MYOCARDIAL DAMAGE ST & T ABNORMALITY, CONSIDER INFERIOR ISCHEMIA OR LEFT VENTRICULAR STRAIN ABNORMAL ECG RI6.01 No previous ECG available for comparison
--- NOTE | 2021-04-17 21:40 | EKG ---
[address] [address] Test Date: 2021-04-17 Test Time: 20:02:25 Pat Name: SHAN STORM Department: Room: Gender: M Incident Response Specialist: : 1945 Requested By: SOREN ALVARADO Order Number: [id number] Reading MD: Measurements Intervals [place] Rate: 145 P: [place]: QRS: 39 QRSD: 92 T: -84 QT: 290 QTc: 453 Interpretive Statements IRREGULAR RHYTHM, NO P-WAVE FOUND QRS(T) CONTOUR ABNORMALITY CONSIDER ANTEROLATERAL MYOCARDIAL DAMAGE ST & T ABNORMALITY, CONSIDER INFEROLATERAL ISCHEMIA OR LEFT VENTRICULAR STRAIN ABNORMAL ECG RI6.01 No previous ECG available for comparison
--- NOTE | 2021-04-17 21:52 | RAD ---
EXAMINATION: XR CHEST 1V. HISTORY: 76 years Male tachycardia COMPARISON: September 08, 2020. Findings: The lungs are clear. The heart size is appears prominent. There is no effusion or pneumotho rax. The mediastinum and lissette appear unremarkable. Cervical spine fusion hardware is seen. Impression: Prominent cardiac size. No focal infiltrate. Electronically signed by: Beto Ochoa MD (04/17/2021 9:50 PM) [id number]
[2021-04-17 22:55] VITALS: BP 134/69
--- NOTE | 2021-04-18 03:11 | EKG ---
[address] [address] Test Date: 2021-04-17 Test Time: 21:49:50 Pat Name: SHAN STORM Department: Room: Gender: M Billboard Installer: : 1945 Requested By: SOREN ALVARADO Order Number: [id number] Reading MD: Measurements Intervals [place] Rate: 64 P: 59 MT: 142 QRS: 36 QRSD: 96 T: -5 QT: 408 QTc: 421 Interpretive Statements SINUS RHYTHM NORMAL ECG RI6.01 No previous ECG available for comparison
== END 2021-04-17 22:56 | disposition home or self-care (01) ==
LOC: ER 19:52
DX: I48.20 Chronic atrial fibrillation, unspecified (principal); D64.9 Anemia, unspecified; E11.65 Type 2 diabetes mellitus with hyperglycemia; E78.00 Pure hypercholesterolemia, unspecified; I11.9 Hypertensive heart disease without heart failure; Z86.2 Personal history of diseases of the blood and blood-forming organs and certain disorders involving the immune mechanism
CPT/HCPCS: 36415; 71045; 80048; 80076; 82550; 83690; 83735; 83880; 84443; 84484; 85025; 85379; 85610; 85730; 93005; 96360; 96361; 99285; J7120